=== PATIENT | female | born 1980 | race Caucasian/White ===

== ENCOUNTER 2018-05-28 10:58 | Inpatient (IN) | payer BC ==
[~2018-05-28] VITALS: Ht 170.2 cm; Wt 94.1 kg
[2018-05-28] VITALS (19 sets, daily range): BP systolic 126–153; BP diastolic 69–92; PULSE 76–102; TEMP 97.7–98
[2018-05-28] MEDS ORDERED: SYNTHROID0.088 MG/T PO (13:37)
[2018-05-28] MEDS ORDERED: ZOVIRAX400 MG PO (13:37)
[2018-05-28] MEDS ORDERED: PRILOSEC 20MG20 MG PO (13:37)
[2018-05-28] MEDS ORDERED: PREDNISONE 5MG5 MG PO (13:37)
[2018-05-28] MEDS ORDERED: PRENATAL VITAMI1 TA3 PO (13:37)
[2018-05-28] MEDS ORDERED: CALCIUM CARBON650 M2 (13:38)
[2018-05-28] MEDS ORDERED: TYLENOL 500MG500 MG PO (13:38)
[2018-05-28 14:11] LABS: BASO % 0.2 % (0.0-2.0); EOS % 0.2 % (0-4.0); GRAN # 8.2 (1.4-6.5); GRAN % 75.2 % (42.2-75.2); HEMOGLOBIN 11.8 g/dl (12.5-16.0); LYMPH # 2.1 (1.2-3.4); LYMPH % 19.4 % (20.0-51.0); MEAN CELL VOLUME 82 fl (80.0-100.0); MEAN CORPUSCULAR HEMOGLOBIN 26 pg (27.0-31.0); MEAN CORPUSCULAR HGB CONC 32 g/dl (33.0-37.0); MEAN PLATELET VOLUME 11.5 fl (7.4-10.4); MONO # 0.4 (0.1-0.6); MONO % 3.6 % (1.7-9.3); PLATELET COUNT 275 K/mm3 (130-400); RED BLOOD COUNT 4.51 M/mm3 (4.10-5.30); REDCELL DISTRIBUTION WIDTH-CV 14.9 % (11.5-14.5)
[2018-05-28 14:27] LABS: ALBUMIN 3.8 gm/dL (3.5-5.0); BILIRUBIN,TOTAL 0.2 mg/dL (0.0-1.0); CREATININE, serum 0.56 mg/dL (0.52-1.25); POTASSIUM 3.7 mmol/L (3.4-5.0); TOTAL PROTEIN 7.4 gm/dL (6.4-8.2)
[2018-05-29] VITALS (28 sets, daily range): BP systolic 103–161; BP diastolic 55–90; PULSE 71–114; TEMP 98–98.9
[2018-05-29] MEDS ORDERED: IBU600 MG PO (09:25)
[2018-05-29] MEDS ORDERED: PERCOCET 325 MG1 TA2 PO (09:26)
[2018-05-30 06:50] VITALS: BP 126/77; PULSE 82; TEMP 97.4
[2018-05-30] MEDS ORDERED: NORCO 325 MG-7.1 TAB PO (08:38)
[2018-05-30 20:30] VITALS: BP 128/79; PULSE 90
[2018-05-31 07:24] VITALS: BP 137/73; PULSE 79; TEMP 97.9
== END 2018-05-31 12:45 | disposition home or self-care (01) | DRG 786 ==
LOC: LDR 11:12 → OB 05-29 06:02
PROVIDERS: Obstetrics & Gynecology
PROC: 3E0P7VZ Introduction of Hormone into Female Reproductive, Via Natural or Artificial Opening (ICD-10-PCS; 2018-05-28)
PROC: 10D00Z1 Extraction of Products of Conception, Low, Open Approach (ICD-10-PCS; principal; 2018-05-29)
DX: O26.62 Liver and biliary tract disorders in childbirth (principal); K83.1 Obstruction of bile duct; O99.12 Other diseases of the blood and blood-forming organs and certain disorders involving the immune mechanism complicating childbirth; O98.32 Other infections with a predominantly sexual mode of transmission complicating childbirth; Z3A.39 39 weeks gestation of pregnancy; Z37.0 Single live birth; O76 Abnormality in fetal heart rate and rhythm complicating labor and delivery; O34.13 Maternal care for benign tumor of corpus uteri, third trimester; O99.284 Endocrine, nutritional and metabolic diseases complicating childbirth; E03.9 Hypothyroidism, unspecified; O99.344 Other mental disorders complicating childbirth; F41.8 Other specified anxiety disorders; D69.6 Thrombocytopenia, unspecified; M51.36 Other intervertebral disc degeneration, lumbar region
CPT/HCPCS: J0690; J1200; J1885; J2270; J2370; J2590; J2795; J3105; J7120